=== PATIENT | male | born 1960 | race Caucasian/White ===

== ENCOUNTER 2020-12-31 12:07 | Observation (INO) | payer OTHER ==
[2020-12-31] MEDS ORDERED: Diltiazem 125 MG/25 ML ONE (12:23)
[2020-12-31] MEDS ORDERED: Acetaminophen 325 MG TAB PO PRN (14:46)
[2020-12-31] MEDS ORDERED: Senokot S 8.6-50 MG TAB PO PRN (14:46)
[2020-12-31] MEDS ORDERED: Diltiazem 125 MG in Sodium Chloride 0.9% 100 ML IVPB SCH (15:00)
[2020-12-31] MEDS: Famotidine 20 MG TAB PO SCH (19:46)
[2020-12-31] MEDS: Enoxaparin Sodium 100 MG/ML SYRINGE SC SCH (19:46)
[2020-12-31 21:09] VITALS: BMI 34.7
[2020-12-31] MEDS: Diltiazem 125 MG in Sodium Chloride 0.9% 100 ML IVPB SCH (22:18)
[2021-01-01 02:57] LABS: Troponin I 0.015 ng/mL (< 0.028)
[2021-01-01 05:15] LABS: Hemoglobin A1c 5.6 % (4.0-6.0)
[2021-01-01 05:21] LABS: #Basophils 0.1 thou/uL (0.0-0.2); #Eosinphils 0.2 thou/uL (0.0-0.7); #Lymphocytes 2.5 thou/uL (1.20-3.40); #Monocytes 0.9 thou/uL (0.11-0.59); #Neutrophils 4.8 thou/uL (1.40-6.50); %Basophils 0.8 % (0.0-1.0); %Eosinophils 2.3 % (0.0-10.0); %Lymphocytes 29.3 % (21.0-51.0); %Monocytes 10.4 % (0.0-10.0); %Neutrophils 57.2 % (42.0-75.0); Mean Corpuscular Hemoglobin 31.8 pg (27.0-31.0); Mean Corpuscular Volume 99.2 fL (78.0-98.0); Mean Platelet Volume 8.7 fL (7.4-10.4); Platelet Count 233 thou/uL (130-400); RBC Distribution Width 12.9 % (11.5-14.5); Red Blood Cell (RBC) Count 4.73 mill/uL (4.70-6.10); White Blood Cell (WBC) Count 8.4 thou/uL (4.8-10.8)
[2021-01-01 05:35] LABS: Troponin I 0.024 ng/mL (< 0.028)
[2021-01-01 05:36] LABS: ALT (SGPT) 14 U/L (8-55); AST (SGOT) 10 U/L (5-34); Albumin 3.5 g/dL (3.4-4.8); Alkaline Phosphatase 48 U/L (40-110); Anion Gap 9 mmol/L (10-20); BUN (Urea Nitrogen) 14 mg/dL (8.4-25.7); Bilirubin, Total 0.4 mg/dL (0.2-1.2); Calc. Creatinine Clearance 114 mL/min (70-130); Carbon Dioxide 26 mmol/L (23-31); Cardiac Risk 6.1 (Less than 4.5); Chloride 108 mmol/L (98-107); Cholesterol 195 mg/dl (< 200 Desired); Globulin 2.5 g/dL (2.4-3.5); Glucose 106 mg/dL (80-115); HDL Cholesterol 32 mg/dL (>60 Neg Risk); LDL Cholesterol, Calculated 141 mg/dL; Potassium 4.2 mmol/L (3.5-5.1); Sodium 139 mmol/L (136-145); Triglycerides 112 mg/dL (Less than 150)
[2021-01-01] MEDS: Famotidine 20 MG TAB PO SCH ×3 (09:04→21:07)
[2021-01-01] MEDS: Enoxaparin Sodium 100 MG/ML SYRINGE SC SCH (12:26)
[2021-01-01 13:27] LABS: Troponin I 0.021 ng/mL (< 0.028)
[2021-01-01] MEDS: Diltiazem 125 MG in Sodium Chloride 0.9% 100 ML IVPB SCH (13:46)
[2021-01-01] MEDS ORDERED: Flecainide 50 MG TAB PO SCH (18:00)
[2021-01-01] MEDS ORDERED: Rivaroxaban 10 MG TAB PO SCH (18:00)
[2021-01-01] MEDS ORDERED: Atorvastatin Calcium 40 MG TAB PO SCH (21:00)
[2021-01-01] MEDS: Metoprolol Tartrate 25 MG TAB PO SCH (21:07)
[2021-01-02] MEDS ORDERED: Ondansetron PF 4 MG/2 ML Vial IVP PRN (04:30)
[2021-01-02] MEDS ORDERED: Ondansetron ODT 4 MG TAB SL PRN (04:30)
[2021-01-02] MEDS: Metoprolol Tartrate 25 MG TAB PO SCH (08:02)
[2021-01-02] MEDS: Famotidine 20 MG TAB PO SCH (08:02)
[2021-01-02 08:05] VITALS: BP 126/81; TEMP 97.5
[2021-01-02] MEDS ORDERED: Flecainide 50 MG TAB PO SCH (09:00)
== END 2021-01-02 09:41 | disposition home or self-care (01) ==
LOC: ERS 12:07 → ERHOLD 13:46 → 2SE 19:22
PROVIDERS: ADMIT Internal Medicine; ATTEND Internal Medicine
DX: I48.4 Atypical atrial flutter (principal); I48.91 Unspecified atrial fibrillation; I08.1 Rheumatic disorders of both mitral and tricuspid valves; I11.9 Hypertensive heart disease without heart failure; E78.5 Hyperlipidemia, unspecified; R73.03 Prediabetes; R73.9 Hyperglycemia, unspecified; K27.9 Peptic ulcer, site unspecified, unspecified as acute or chronic, without hemorrhage or perforation; N17.9 Acute kidney failure, unspecified; E78.00 Pure hypercholesterolemia, unspecified; I45.10 Unspecified right bundle-branch block
CPT/HCPCS: 36415; 80053; 80061; 83036; 84443; 84484; 85025; 93005; 93010; 93306; 96365; 96366; 96372; G0378; J1650; J3490

== ENCOUNTER 2021-01-19 10:03 | Outpatient (CLI) | payer OTHER ==
[2021-01-19 14:15] LABS: Hemoglobin 15.2 g/dL (13.5-17.5); Mean Corpuscular HGB CONC 33.3 g/dL (32.0-36.0); Mean Corpuscular Hemoglobin 32.3 pg (27.0-33.0); Mean Corpuscular Volume 97.2 fl (81.2-95.1); Mean Platelet Volume 12.2 fl (7.4-10.4); Platelet Count 251 10x3/uL (150-450); RBC Distribution Width 13.9 % (11.5-14.5); White Blood Cell (WBC) Count 8.3 10x3/uL (3.5-10.5)
[2021-01-19 14:28] LABS: INR-International Normal Ratio 1.1; PTT 31.7 sec (22.0-33.0); Prothrombin Time 12.6 sec (9.5-12.1)
[2021-01-19 14:53] LABS: Anion Gap 14 mmol/L (10-20); BUN (Urea Nitrogen) 16 mg/dL (8.4-25.7); Calc. Creatinine Clearance 0 mL/min (70-130); Calcium 9.8 mg/dL (7.8-10.44); Carbon Dioxide 25 mmol/L (23-31); Chloride 107 mmol/L (98-107); Glucose 92 mg/dL (80-115); Sodium 141 mmol/L (136-145)
[2021-01-20 21:36] LABS: SARS-CoV-2 PCR by NAA Not Detected (NotDetected)
== END 2021-01-19 10:04 | disposition home or self-care (01) ==
LOC: LABBT 10:03
PROVIDERS: ATTEND Internal Medicine Cardiovascular Disease
DX: Z01.818 Encounter for other preprocedural examination (principal); Z20.822 Contact with and (suspected) exposure to COVID-19
CPT/HCPCS: 80048; 85027; 85610; 85730; 93005; 93010; U0003; U0005

== ENCOUNTER 2021-01-24 05:41 | Day surgery (SDC) | payer OTHER ==
[2021-01-19 15:04] VITALS: BMI 33.9
[2021-01-24] MEDS ORDERED: DOPamine 400 MG/D5W 250 ML 0 ML ONE (06:44)
[2021-01-24] MEDS ORDERED: Heparin 10,000 UNITS/ 10 ML VIAL ONE (06:44)
[2021-01-24] MEDS ORDERED: Heparin 25,000 units/D5W 500 ML ONE (06:44)
[2021-01-24] MEDS ORDERED: Midazolam HCl 2 mg/2 ml Vial ONE (07:25)
[2021-01-24] MEDS ORDERED: Fentanyl 100 MCG/2 ML VIAL ONE ×2 (07:25→12:27)
[2021-01-24] MEDS ORDERED: Lidocaine 1% PF 5 ML VIAL ONE (07:28)
[2021-01-24] MEDS ORDERED: Rocuronium Bromide 10 MG/ML (10ML VIAL) ONE (07:28)
[2021-01-24] MEDS ORDERED: PHENYLEPHRINE-NS 100 MCG/ML 10 ML SYRINGE ONE (07:28)
[2021-01-24] MEDS ORDERED: PROPOFOL 200 MG/20 ML VIAL ONE (07:28)
[2021-01-24] MEDS ORDERED: Vecuronium 10 MG VIAL ONE (07:28)
[2021-01-24] MEDS ORDERED: Isoproterenol 0.2 MG/1 ML AMP ONE (09:37)
[2021-01-24] MEDS ORDERED: SUGAMMADEX SODIUM 200 MG/2 ML VIAL ONE (10:37)
[2021-01-24] MEDS ORDERED: Protamine Sulfate 50 MG/5 ML VIAL ONE (11:35)
== END 2021-01-24 15:44 | disposition home or self-care (01) ==
LOC: CCL 05:41
PROVIDERS: ATTEND Internal Medicine Cardiovascular Disease
PROC: 4A023FZ Measurement of Cardiac Rhythm, Percutaneous Approach (ICD-10-PCS; principal; 2021-01-24)
PROC: 02583ZZ Destruction of Conduction Mechanism, Percutaneous Approach (ICD-10-PCS; principal; 2021-01-24)
PROC: 4A0234Z Measurement of Cardiac Electrical Activity, Percutaneous Approach (ICD-10-PCS; principal; 2021-01-24)
PROC: 02K83ZZ Map Conduction Mechanism, Percutaneous Approach (ICD-10-PCS; principal; 2021-01-24)
DX: I48.91 Unspecified atrial fibrillation (principal); I48.4 Atypical atrial flutter; I45.10 Unspecified right bundle-branch block; I10 Essential (primary) hypertension; I08.1 Rheumatic disorders of both mitral and tricuspid valves; E78.5 Hyperlipidemia, unspecified; R73.03 Prediabetes; Z79.01 Long term (current) use of anticoagulants; Z79.899 Other long term (current) drug therapy
CPT/HCPCS: 76942; 85347; 93005; 93613; 93621; 93622; 93623; 93655; 93656; 93657; 93662; C1732; C1759; J1265; J1644; J2250; J2704; J2720; J3010